=== PATIENT | male | born 1960 | race Hispanic/Latino ===

== ENCOUNTER → 2024-05-15 | Outpatient (CLI) | payer OTHER ==
--- NOTE | 2024-05-15 11:33 | HMCIMG ---
US AORTA LIMITED REASON: AAA. COMPARISON: None TECHNIQUE: Limited abdominal aorta ultrasound study was performed. FINDINGS: Proximal portion of abdominal aorta measures 2 x 2.4 cm, midportion measures 1.8 x 1.7 cm and distal portion measures 1.4 x 1.5 cm. Right common iliac artery measures 10 x 10 mm. Left common iliac artery measures 9 x 10 mm. No evidence of abdominal aortic aneurysm minimal atherosclerotic changes are seen. IMPRESSION: No evidence of abdominal aortic aneurysm is seen.
== END | disposition home or self-care (01) ==
LOC: RAH 09:52
PROVIDERS: ATTEND Internal Medicine
DX: Z13.6 Encounter for screening for cardiovascular disorders (principal); I71.40 Abdominal aortic aneurysm, without rupture, unspecified
CPT/HCPCS: 76775